=== PATIENT | female | born 1960 | race Caucasian/White ===

== ENCOUNTER 2020-06-13 14:19 | Outpatient (REF) | payer OTHER, SELFPAY | END 2020-06-13 14:20 | disposition home or self-care (01) | LOC: HO.HVNA 14:19 | PROVIDERS: Visit Provider Internal Medicine Hematology & Oncology | DX: R05 Cough (principal); R53.1 Weakness; Z20.828 Contact with and (suspected) exposure to other viral communicable diseases | CPT/HCPCS: U0003 ==